=== PATIENT | female | born 1985 | race African-American/Black ===

== ENCOUNTER 2024-07-21 03:06 | Emergency (ER) | payer OTHER ==
[~2024-07-21] VITALS: Ht 165.1 cm; Wt 136.1 kg
[2024-07-21] MEDS ORDERED: HYDROCODONE/APAP 5/325MG TABLET ONE (03:28)
[2024-07-21] MEDS: HYDROCODONE/APAP 5/325MG TABLET PO ONE (03:33)
[2024-07-21 05:46] LABS: APPEARANCE,URINE CLEAR (CLEAR); BILIRUBIN,URINE NEGATIVE (NEGATIVE); BLOOD, URINE NEGATIVE Ery/uL (NEGATIVE); COLOR,URINE YELLOW (YELLOW); KETONES,URINE TRACE mg/dL (NEGATIVE); LEUKOCYTE ESTERASE ,URINE NEGATIVE (NEGATIVE); NITRITE, URINE NEGATIVE (NEGATIVE); PROTEIN,URINE TRACE mg/dl (NEGATIVE); UGLUCOSE NEGATIVE (NEGATIVE); UROBILINOGEN,URINE 0.2 EU/dL (0.2)
[2024-07-21 05:47] LABS: BARBITURATE, URINE NEGATIVE (NEGATIVE); BENZODIAZEPINE, URINE NEGATIVE (NEGATIVE); COCCAINE, URINE NEGATIVE (NEGATIVE); PREGNANCY TEST URINE QUAL NEGATIVE (NEGATIVE)
[2024-07-21 05:48] LABS: AMPHETAMINE, URINE POSITIVE (NEGATIVE); CANNABINOID, URINE POSITIVE (NEGATIVE); OPIATE, URINE POSITIVE (NEGATIVE); PHENCYCLIDINE SCREEN,URINE POSITIVE (NEGATIVE)
[2024-07-21 05:50] LABS: ADD URINE CULTURE NO; BACTERIA,URINE Rare /HPF (None Seen); SQUAMOUS EPITHELIAL CELL,UR Rare /HPF (None Seen); WBC,URINE 0-2 /HPF (0-3)
[2024-07-21] MEDS ORDERED: IBUP-1955 PO (07:02)
[2024-07-21] MEDS ORDERED: LIDO30AD10 TP (07:02)
[2024-07-21 09:01] VITALS: BP 122/66; TEMP 98; O2SAT 100
== END 2024-07-21 09:01 | disposition home or self-care (01) ==
LOC: ER 03:08
DX: R07.89 Other chest pain (principal); M79.632 Pain in left forearm; M25.512 Pain in left shoulder; G40.909 Epilepsy, unspecified, not intractable, without status epilepticus; E11.9 Type 2 diabetes mellitus without complications; J45.909 Unspecified asthma, uncomplicated; Z59.00 Homelessness unspecified; Z20.822 Contact with and (suspected) exposure to COVID-19
CPT/HCPCS: 71100-TC; 73030-TC; 73090-TC; 81001; 84703-TC